=== PATIENT | male | born 1935 | race Caucasian/White ===

== ENCOUNTER 2016-09-30 19:05 | Emergency (ER) | payer OTHER, MEDICARE ==
[~2016-09-30] VITALS: Ht 182.9 cm; Wt 108.7 kg
[~2016-09-30 19:05] MED LIST: ALT5 PO; ASPI-113 PO; ATOR-22 PO; CLOP1TAB15 PO; ESCI1TAB10 PO; METO25TA3 PO; MULTTAB58 PO; NITR0.4S UT
[2016-09-30 19:08] VITALS: TEMP 36.6; Ht 182.9 cm; Wt 108.7 kg
[2016-09-30] MEDS ORDERED: XYLOCAINE 1%/SOD BICARB 20 ML VIAL INFIL ONE (19:30)
[2016-09-30] MEDS ORDERED: RAMI5CAP PO (19:55)
--- NOTE | 2016-09-30 19:55 | EMERGENCY ROOM VISIT NOTE ---
ED Visit Note First contact with patient: 19:15 CHIEF COMPLAINT: Tongue laceration HISTORY OF PRESENT ILLNESS: This 81-year-old male patient presents to the emergency department ambulatory complaining of a laceration to his tongue. The patient reports that he bit the tongue proximally 4 hours ago and has had persistent bleeding. The patient does take Plavix. He denies any pain at this time. The patient's Tetanus shot is up to date. REVIEW OF SYSTEMS: A 6 system review of systems was completed with positives and pertinent negatives listed in the HPI. ALLERGIES: No known drug allergies MEDICATIONS: See med list PMH: Heart disease SOCIAL HISTORY: The patient lives locally. Nonsmoker, denies alcohol use. PHYSICAL EXAM: Vital Signs: Reviewed Nurse's notes, vital signs stable. GENERAL : This is an 81-year-old male, in no acute distress, well-developed, well- nourished. SKIN: There is a 3 mm long laceration on the left side of the tongue. There is persistent active bleeding. EMERGENCY DEPARTMENT COURSE: I examined the patient. Verbal consent was obtained to perform the procedure. The patient was sterilely draped. 1 ml of 1 % buffered lidocaine was used to anesthetize the laceration on the tongue. Once the patient was anesthetized, the wound was irrigated under pressure with sterile saline. The wound was explored and was as described above. The laceration was repaired using 2 simple interrupted 5-0 Vicryl sutures with the wound edges being well approximated. The patient tolerated the procedure well. Hemostasis was achieved. Conservative measures were discussed with the patient. He verbalized understanding of my assessment and treatment plan. The patient was discharged home in good condition. The patient was independently evaluated by Dr. Cornell, ED attending physician, who agreed with my assessment and treatment plan. DIAGNOSIS: Tongue laceration Current/Historical Medications Scheduled Aspirin Enteric Coated (Ecotrin Or Generic), 325 MG PO DAILY Atorvastatin (Lipitor), 20 MG PO HS Clopidogrel (Plavix), 75 MG PO DAILY Escitalopram Oxalate (Lexapro), 20 MG PO HS Metoprolol Succ (Toprol Xl) (Toprol-Xl), 25 MG PO DAILY Multiple Vitamin (Multivitamin), 1 TAB PO DAILY Nitroglycerin (Nitrostat), 0.4 MG UT PRN Ramipril (Ramipril), 1 CAP PO QPM Allergies Coded Allergies: No Known Allergies (Verified , 09/30/16) Vital Signs Date Time Temp Pulse Resp B/P Pulse Ox O2 Delivery O2 Flow Rate FiO2 09/30/16 19:08 36.6 85 20 169/88 94 Room Air Departure Information Impression Primary Impression: Tongue laceration Dispostion Home / Self-Care Condition GOOD Referrals Ari Medrano M.D. (PCP) Patient Instructions [facility] Additional Instructions You have received 2 sutures on your tongue. These sutures are dissolvable and will dissolve/fall out on their own as the laceration heals. Rinse the mouth with a mouthwash once daily. Soft foods for the first 48 hours. For pain control, you can use the following yqhy-zrw-[id number] medicines (if >12 yo): - Regular strength (325mg/tab) Tylenol (acetaminophen) 2 tabs every 4-6 hours as needed. Do not exceed 12 tablets in a 24 hour period. Avoid taking more than 4 grams (4000 mg) of Tylenol per day. This includes any other sources of acetaminophen you may take on a regular basis. - Regular strength (200 mg/tab) Advil (ibuprofen) 1-2 tabs every 4-6 hours as needed. Do not exceed a dose of 3200 mg per day. Return to the emergency department if there is redness/swelling or any other new /concerning symptoms. Problem Qualifiers Primary Impression: Tongue laceration Encounter type: initial encounter Qualified Codes: S01.512A - Laceration without foreign body of oral cavity, initial encounter
[2016-09-30 20:21] VITALS: BP 139/78; PULSE 69; O2SAT 94
== END 2016-09-30 20:10 | disposition home or self-care (01) ==
LOC: C.EDB 19:08 → C.EDD 20:10
DX: S01.512A Laceration without foreign body of oral cavity, initial encounter (principal); W45.8XXA Other foreign body or object entering through skin, initial encounter; Z79.02 Long term (current) use of antithrombotics/antiplatelets; Z79.82 Long term (current) use of aspirin; Z79.899 Other long term (current) drug therapy

== ENCOUNTER 2016-10-05 21:07 | Emergency (ER) | payer OTHER, MEDICARE ==
[~2016-10-05] VITALS: Ht 182.9 cm; Wt 108.2 kg
[~2016-10-05 21:07] MED LIST changes: -ALT5 PO; +RAMI5CAP PO
[2016-10-05 21:12] VITALS: Ht 182.9 cm; Wt 108.2 kg
[2016-10-05] MEDS ORDERED: AMINOCAPROIC (AMICAR) 5% MOUTHWASH PO ONE (22:00)
[2016-10-05] MEDS ORDERED: AMINOCAPROIC ACID INJ 5,000 MG, WATER, STERILE FOR INJ 80 ML PO ONE ×2 (22:30)
[2016-10-05] MEDS ORDERED: XYLOCAINE 1%/SOD BICARB 20 ML VIAL INFIL ONE (23:00)
[2016-10-05 23:57] VITALS: BP 140/84; PULSE 82; O2SAT 94
--- NOTE | 2016-10-12 20:17 | EMERGENCY ROOM VISIT NOTE ---
ED Visit Note First contact with patient: 21:37 Chief Complaint: Tongue Laceration History of Present Illness: Patient is an 81-year-old male who presents to the emergency Department this evening for evaluation of a possible tongue laceration. He was seen in this facility 5 days ago for a tongue laceration after biting his tongue. He had been doing well until this evening. While eating, he feels as though he costs and additional laceration. He has had bleeding from the tongue since. He reports no discomfort rating his pain a 0/ 10. He takes Plavix and aspirin daily. He denies any dizziness, lightheadedness, shortness of breath, nausea, or vomiting. Tetanus status is up -to-date. Medications: Reviewed and discussed with the patient. Allergies: No known allergies. PMH: No pertinent past medical history. SHx: Patient is an 81-year-old male who lives with family. ROS: All pertinent positive and negative review of systems are appropriately documented in the History of Present Illness. Physical Exam: VITAL SIGNS - Vital signs and nursing notes were reviewed. GENERAL - 81-year-old male appearing his stated age who is in no acute distress. Communicates well with provider and answers questions appropriately. MOUTH - There is mild dehiscence to the wound noted in the central portion of the tongue measuring less than 1 cm in length. There is oozing blood noted from the area of dehiscence. No gaping of the wound. No deep structures appreciated. Full range of motion of the tongue noted. VASCULAR - Capillary refill was brisk. ED Course: Patient was seen and evaluated by myself. Initially, Amicar was utilized to the surface of the tongue in attempt to stop the bleeding. This was unsuccessful. I did elect to use this medication initially as the laceration was not gaping and with recent closure, I did feel that persistent manipulation the time would be that her mental to the patient. Regardless, the Amicar was not successful. At this point, costs and benefits of performing primary wound closure versus no repair were discussed with the patient who verbalizes understanding. Verbal consent was obtained prior to performing the procedure. 1.0 cc of 1% buffered lidocaine was used to anesthetize the tongue laceration. The wound was cleansed and prepped in the typical sterile fashion utilizing normal saline and Betadine. The wound was sterilely draped. Once proper anesthetization was established, the wound was further examined and demonstrated a partial opening of a previously close laceration to the tongue. The wound was copiously irrigated with normal saline and Betadine. The wound was closed using 2 simple interrupted 5-0 Vicryl sutures. At this point, there still oozing from the wound. I suspect this is from a superficial blood vessel. 1 joewtc-ha-ljohn 5-0 Vicryl suture was used to ligate the vessel. Complete resolve bleeding was appreciated. Patient tolerated the procedure well. No complications were met. Gauze with Amicar was applied pressure to the area. The patient's family member was present and was concerned for anemia given the length of bleeding. I politely explained that this was likely not the case, but did offer laboratory assessment. I was approached by nursing staff who informed me that the patient's bleeding completely resolved and he declines blood work at this time. As the emergency department was extremely busy during this particular time of evening, by the time I was able to reassess the patient, he and his family member elected to leave the emergency department without discharge planning. Regardless, I do not feel that laboratory assessment was necessary in this situation. Patient will follow-up with his primary care provider or return for changing/worsening symptoms. Patient discharged home in good condition. Impression: Tongue Laceration Current/Historical Medications Scheduled Aspirin Enteric Coated (Ecotrin Or Generic), 325 MG PO DAILY Atorvastatin (Lipitor), 20 MG PO HS Clopidogrel (Plavix), 75 MG PO DAILY Escitalopram Oxalate (Lexapro), 20 MG PO HS Metoprolol Succ (Toprol Xl) (Toprol-Xl), 25 MG PO DAILY Multiple Vitamin (Multivitamin), 1 TAB PO DAILY Nitroglycerin (Nitrostat), 0.4 MG UT PRN Ramipril (Ramipril), 1 CAP PO QPM Allergies Coded Allergies: No Known Allergies (Verified , 10/05/16) Vital Signs Date Time Temp Pulse Resp B/P Pulse Ox O2 Delivery O2 Flow Rate FiO2 10/05/16 23:57 82 18 140/84 94 10/05/16 21:12 103 20 154/84 97 Room Air Medications Administered Medications (Trade) Dose Ordered Sig/Mick Route Start Time Stop Time Status Last Admin Dose Admin Aminocaproic Acid/ Sterile Water (Aminocaproic Acid Inj/Sterile Water Inj) DOSE: Hold 10ml of solut... ONE ONCE PO 10/05/16 22:30 10/05/16 22:31 DC 10/05/16 22:30 10 ML Lidocaine HCl (Buffered Lidocaine 1% Inj) 20 ml ONE ONCE INFIL 10/05/16 23:00 10/05/16 23:01 DC 10/05/16 23:13 20 ML Departure Information Impression Primary Impression: Laceration of tongue Dispostion Home / Self-Care Condition GOOD Referrals Ari Medrano M.D. (PCP) Forms HOME CARE DOCUMENTATION FORM, IMPORTANT VISIT INFORMATION Patient Instructions [facility] Problem Qualifiers Primary Impression: Laceration of tongue Encounter type: initial encounter Qualified Codes: S01.512A - Laceration without foreign body of oral cavity, initial encounter
== END 2016-10-05 23:57 | disposition home or self-care (01) ==
LOC: C.EDB 21:09 → C.EDD 23:57
DX: S01.512A Laceration without foreign body of oral cavity, initial encounter (principal); X58.XXXA Exposure to other specified factors, initial encounter

== ENCOUNTER → 2017-02-02 | Outpatient (CLI) | payer OTHER, MEDICARE ==
[2017-02-02 16:53] LABS: BASO % 0.3 %; BASO ABS # 0.02 K/uL (0-0.2); COMPLETE YES; EOS % 4.2 %; IG% 0.1 %; LYMPH % 22.6 %; LYMPH ABS # 1.73 K/uL (1.2-3.4); MEAN CELL VOLUME 94.5 fL (80-100); MEAN CORPUSCULAR HEMOGLOBIN 30.8 pg (25-34); MEAN CORPUSCULAR HGB CONC 32.6 g/dl (32-36); MONO % 11.5 %; NEUT % 61.3 %; PLATELET COUNT 205 K/uL (130-400); RED BLOOD COUNT 4.55 M/uL (4.7-6.1); WHITE BLOOD COUNT 7.65 K/uL (4.8-10.8)
[2017-02-02 17:03] LABS: ALT/SGPT 45 U/L (12-78); AST/SGOT 35 U/L (15-37); BLOOD UREA NITROGEN 25 mg/dl (7-18); BUN/CREATININE RATIO 20.8 (10-20); CARBON DIOXIDE 30 mmol/L (21-32); CHLORIDE 107 mmol/L (98-107); GLUCOSE 93 mg/dl (70-99); POTASSIUM 4.7 mmol/L (3.5-5.1); SODIUM 140 mmol/L (136-145)
[2017-02-02 17:14] LABS: ALB/GLOB RATIO 1.1 (0.9-2); ALKALINE PHOSPHATASE 77 U/L (45-117); CHOLESTEROL 118 mg/dl (0-200); CHOLESTEROL/HDL RATIO 2.8; HDL CHOLESTEROL 42 mg/dl; LDL CHOLESTEROL CALCULATED 56 mg/dl; TRIGLYCERIDES 98 mg/dl (0-150); VERY LOW DENSITY LIPOPROT CALC 20 mg/dl
== END | disposition home or self-care (01) ==
LOC: C.LABBC 12:33
PROVIDERS: ATTEND Internal Medicine Geriatric Medicine
DX: I25.10 Atherosclerotic heart disease of native coronary artery without angina pectoris (principal); E78.5 Hyperlipidemia, unspecified; I10 Essential (primary) hypertension; K58.9 Irritable bowel syndrome, unspecified; M19.90 Unspecified osteoarthritis, unspecified site

== ENCOUNTER → 2017-08-08 | Outpatient (CLI) | payer OTHER, MEDICARE ==
[2017-08-08 17:15] LABS: BASO % 0.2 %; BASO ABS # 0.02 K/uL (0-0.2); EOS % 3.2 %; HEMATOCRIT 44.3 % (42-52); IG# 0.01 K/uL (0.00-0.02); LYMPH % 16.5 %; LYMPH ABS # 1.56 K/uL (1.2-3.4); MEAN CELL VOLUME 95.3 fL (80-100); MEAN CORPUSCULAR HEMOGLOBIN 32.3 pg (25-34); MEAN CORPUSCULAR HGB CONC 33.9 g/dl (32-36); MEAN PLATELET VOLUME 12.3 fL (7.4-10.4); MONO % 8.3 %; MONO ABS # 0.78 K/uL (0.11-0.59); NEUT % 71.7 %; NEUT ABS # 6.76 K/uL (1.4-6.5); PLATELET COUNT 205 K/uL (130-400); RED CELL DISTRIBUTION WIDTH CV 13.2 % (11.5-14.5); RED CELL DISTRIBUTION WIDTH SD 45.6 fL (36.4-46.3); WHITE BLOOD COUNT 9.43 K/uL (4.8-10.8)
[2017-08-08 17:26] LABS: ALBUMIN 3.9 gm/dl (3.4-5.0); ALT/SGPT 35 U/L (12-78); BLOOD UREA NITROGEN 18 mg/dl (7-18); CALCIUM 8.6 mg/dl (8.5-10.1); CARBON DIOXIDE 27 mmol/L (21-32); CHOLESTEROL 113 mg/dl (0-200); CREATININE 1.12 mg/dl (0.60-1.40); GLUCOSE 100 mg/dl (70-99); POTASSIUM 4.3 mmol/L (3.5-5.1); SODIUM 140 mmol/L (136-145)
[2017-08-08 17:36] LABS: ALKALINE PHOSPHATASE 79 U/L (45-117); AST/SGOT 24 U/L (15-37); LDL CHOLESTEROL CALCULATED 48 mg/dl; TOTAL PROTEIN 7.5 gm/dl (6.4-8.2)
== END | disposition home or self-care (01) ==
LOC: C.LABPBG 12:17
PROVIDERS: ATTEND Internal Medicine Geriatric Medicine
DX: I25.10 Atherosclerotic heart disease of native coronary artery without angina pectoris (principal); E78.5 Hyperlipidemia, unspecified; M19.90 Unspecified osteoarthritis, unspecified site; M54.16 Radiculopathy, lumbar region; F41.0 Panic disorder [episodic paroxysmal anxiety]; I10 Essential (primary) hypertension

== ENCOUNTER → 2017-08-16 | Outpatient (CLI) | payer OTHER, MEDICARE ==
--- NOTE | 2017-08-16 10:23 | DIAGNOSTIC IMAGING REPORT ---
RIGHT HIP 2 VIEWS CLINICAL HISTORY: Right hip pain. FINDINGS: AP and frog-leg views of the right hip are correlated with pelvic radiograph dated 08/19/2008. The skeletal structures are osteopenic. No fracture is seen. There is moderate arthritic change and joint space narrowing identified in the right hip. Spurring is seen along the acetabular roof and along the inferior aspect of the femoral head. Tiny enthesophytes arise from the greater trochanter of the right femur. Sclerotic degenerative change is partially imaged in the right sacroiliac joint. Phleboliths are noted in the right hemipelvis. The overlying soft tissues are normal in appearance. There is atherosclerotic calcification of the femoral artery. IMPRESSION: 1. No acute bony abnormality is seen in the right hip. 2. Osteopenia and arthritic change as above. Electronically signed by: Sha Diaz M.D. 08/16/2017 10:21 AM Dictated Date/Time: 08/16/2017 10:20 AM
== END | disposition home or self-care (01) ==
LOC: C.RADBC 10:02
PROVIDERS: ATTEND Physician Assistant Medical
DX: M25.551 Pain in right hip (principal); M85.88 Other specified disorders of bone density and structure, other site

== ENCOUNTER → 2017-10-21 | Outpatient (CLI) | payer OTHER, MEDICARE ==
--- NOTE | 2017-10-21 16:50 | DIAGNOSTIC IMAGING REPORT ---
LUMBAR SPINE MRI HISTORY: Right-sided sciatica. Right leg pain. TECHNIQUE: Multiplanar multisequence MRI of the lumbar spine was performed without the use of contrast. COMPARISON: None. FINDINGS: For the purpose of the report the L5-S1 disc space will be located on axial image 23 of 25. No fracture or subluxation. The conus terminates at the L1-L2 level. Mild disc space narrowing at L3-L4. Moderate to space narrowing at L2-L3 and L4-L5. 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 Endplate osteophytes seen throughout the lumbar spine. Severe facet osteoarthritis seen from L4 through S1. This is most pronounced at the L4-L5 level. Mild subcutaneous edema at the lumbar region. L1-L2: No significant central canal or neural foraminal narrowing. L2-L3: Small broad-based posterior disc osteophyte complex resulting in mild central canal and mild left-sided neural foraminal narrowing. There is mild facet hypertrophy. L3-L4: Small broad-based posterior disc bulge asymmetric to the left with a left foraminal annular tear. No significant central canal narrowing. There is mild bilateral neural foraminal narrowing. L4-L5: Small broad-based posterior disc osteophyte complex with extensive ligamentum and facet hypertrophy. This results in moderate to severe central canal narrowing and moderate bilateral neural foraminal narrowing. The disc bulge and facet hypertrophy at this level appear to partially compress the transiting bilateral L5 nerve roots. L5-S1: Small focal central disc protrusion without significant central canal narrowing. There is severe right and mild left neural foraminal narrowing due to the facet hypertrophy. IMPRESSION: 1. Multilevel lumbar spondylosis as described above most pronounced at the L4-L5 level. 2. No fracture or subluxation. 3. 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 Electronically signed by: Harrison Brown M.D. 10/21/2017 4:49 PM Dictated Date/Time: 10/21/2017 4:36 PM
== END | disposition home or self-care (01) ==
LOC: C.MRIBC 15:26
PROVIDERS: ATTEND Anesthesiology
DX: M47.896 Other spondylosis, lumbar region (principal); M25.551 Pain in right hip